=== PATIENT | female | born 1975 | race Caucasian/White ===

== ENCOUNTER 2023-06-25 15:37 | Outpatient (CLI) | payer OTHER, SELFPAY ==
--- NOTE | 2023-06-25 16:00 | CRLHL7_ITS ---
For Patients: As a result of the Cures Act, medical imaging exams and procedure reports are released immediately into your electronic medical record. You may view this report before your referring provider. If you have questions, please contact your health care provider. INDICATION: Unusual and frequent menses. TECHNIQUE: Transabdominal and transvaginal pelvic ultrasound. FINDINGS: The uterus measures 7.0 x 3.9 x 4.3 cm. Caesarean section scar anteriorly. The endometrial stripe measures 6 mm transvaginally. No myometrial mass. Indistinct endometrial/myometrial interface nonspecific. ? any history of adenomyosis. The right ovary measures 2.3 x 1.5 x 1.5 cm. The left ovary measures 2.4 x 1.5 x 1.7 cm. No free pelvic fluid. IMPRESSION: 1. No myometrial mass. Postsurgical change from prior resection. 2. Indistinct endometrial/myometrial interface, nonspecific. ? any history of adenomyosis. 3. Normal-sized ovaries without torsion or mass. Dictated by Chema Gandhi MD @ 06/26/2023 11:38:57 AM (Electronically Signed)
== END 2023-06-25 15:38 | disposition home or self-care (01) ==
LOC: US 15:39
PROVIDERS: Visit Provider Family Medicine
DX: N92.0 Excessive and frequent menstruation with regular cycle (principal)
CPT/HCPCS: 76830; 76856

== ENCOUNTER 2023-10-02 06:02 | Day surgery (SDC) | payer OTHER, SELFPAY ==
[2023-10-02] VITALS (22 sets, daily range): BP systolic 100–131; BP diastolic 57–84; PULSE 60–98; RESP 14–16; TEMP 36–36.9; O2SAT 97–100; BMI 24.0
[2023-10-02] MEDS: SODIUM CHLORIDE 0.9 % (FLUSH) 10 ML SYRINGE IVF (06:30)
[2023-10-02] MEDS: LACTATED RINGERS 1000 ML 1,000 ML 100 ML IV ×3 (06:30→11:17)
[2023-10-02 06:49] LABS: Ur HCG Qualitative* Negative (Negative)
[2023-10-02 06:55] LABS: Hemoglobin* 14.7 gm/dL (12.0-16.0)
--- NOTE | 2023-10-02 06:58 | W.PM.H&PU ---
History & Physical Update History & Physical Update H&P Updates: Rita reports her menstrual cycle has improved the last month. Otherwise, no interval changes. We reviewed and resigned consent form.
[2023-10-02] MEDS: CEFAZOLIN 2 GM INJ IVP (07:29)
[2023-10-02 07:34] LABS: Creatinine* 0.5 mg/dL (0.5-1.5); Est. Creatinine Clearance* 157.14; Estimated Glomerular Filt Rate 117 ml/min
--- NOTE | 2023-10-02 09:46 | W.PM.NB ---
Nerve Block Nerve Block Time Seen by Provider: 07:28 Date Seen: 10/02/23 Type of block requested by surgeon for post-operative analgesia: TAP Side: bilateral Time out performed: Yes Verification of patient name: Yes Verification of date of : Yes Site marking: site marked Name of person performing procedure: Saji Continuous monitoring Was continuous monitoring of O2 sat, B/P, director internal communications, recorded every 15 minutes?: Yes Procedure Checklist: sterile prep, needles and gloves Ultrasound guided. Images saved: Yes Medications given in 5ml increments after negative aspiration: Marcaine %: 0.25 mL: 30 Needle gauge: 20 and Exparel mL: 10 Patient tolerated procedure well: Yes Additional comments: Needle noted between internal oblique and transversus abdominus. Local spread visualized Block Charges Block Charge (with Pro Fee): TAP Bilateral Use of Ultrasound Machine for Block: Yes- US Guidance/pain block
--- NOTE | 2023-10-02 09:46 | W.ANESCHARGE ---
Anesthesia Charges Start Date/Time Anesthesia Start Date: 10/02/23 Anesthesia Start Time: 07:19 Stop Date/Time Anesthesia Stop Date: 10/02/23 Anesthesia Stop Time: 10:55
--- NOTE | 2023-10-02 10:59 | W.ANESCHARGE ---
Anesthesia Charges Start Date/Time Anesthesia Start Date: 10/02/23 Anesthesia Start Time: 07:19 Stop Date/Time Anesthesia Stop Date: 10/02/23 Anesthesia Stop Time: 10:55
--- NOTE | 2023-10-02 11:27 | SUR.PHASEI ---
1127: 450cc urine (blue/green) emptied from mcclelland
--- NOTE | 2023-10-02 12:20 | P.PCNOB_ITS ---
Procedure Type of Hysterectomy: Total Laparoscopic Pre-op/Post-op diagnoses: Pre-Op/Post-Op Diagnoses Operation Date: 10/02/23 07:15 <No data on this case meets the specified criteria> Procedure: Procedures Operation Date: 10/02/23 07:15 Actual Procedure Side Surgeon p M/S - Laparoscopic Hysterectomy, Bilateral Salpingectomy, Cystectomy, Lysis of Adhesions Bilateral Rosette Aguirre MD Latin American Studies Director: Lupe Espinal Estimated blood loss (mL): 25 Anesthesia type: General Complications: none Fluids: crystalloid Fluid amount (mL): 2,000 Urine output (mL): 800 Weight of Uterus: 4.55 oz Specimen: uterus, left tube and right tube Disposition: floor Narrative: Preoperative diagnosis: Rita is a 48-year-old 2 para 2 with abnormal uterine bleeding 2/2 possible adenomyosis Postoperative diagnosis: Same Drains: Burroughs to gravity Findings: On exam under anesthesia: The uterus was anteverted, approximately 6 week size, mobile without nodularity or masses palpable. Adnexa without mass or fullness palpable. On laparoscopy: Normal uterus, normal appearing bilateral fallopian tubes with the obvious is defect from previous tubal ligation. Normal-appearing right ovary. Left ovary with 1.5 cm physiologic ovarian cyst. Liver appeared normal. Omental adhesions to the anterior abdominal wall at the site of the previous Pfannenstiel. Procedure: Rita was taken to the operating room where general anesthetic was found to be adequate. She was placed in the dorsal lithotomy position and an exam under anesthesia was performed with findings stated above. She was then prepped and draped in a normal sterile manner. A Burroughs catheter was placed. A bivalve speculum was placed in the vaginal canal. A long Allis clamp was placed on the anterior lip of the cervix, in the uterus sounded to 9 cm. A medium size VCare uterine manipulator was then placed. The Allis clamp and speculum were removed from the cervix. Attention was then turned to performing the laparoscopic portion of the procedure. All incisions were infiltrated with 1% lidocaine with epi prior to incising the skin. A vertical, infraumbilical 0.5 cm incision was made. A 5 mm trocar was then placed under direct visualization. The abdomen was then insufflated with CO2 gas to a pressure of 15 mm of mercury. Three additional port sites were created. The 1st was in the patient's left lower quadrant, just superior medial to the left ASIS (this was an 11 mm port). The 2nd was a hand's breath superior to and slightly medial to the 1st. The 3rd was in the patient's right lower quadrant, just superior medial to the right ASIS. Each was infiltrated with small amount of lidocaine prior to incision. Of 5 mm incision was made at each site, making sure the large vessels were out of harm's way. A 5 mm Fios Kii port was inserted at each site, under direct visualization and without complication. The balloon on each of the 4 ports was inflated, holding each in place. Attention was then turned to performing the hysterectomy. Both ureters were visualized in the normal position bilaterally. Unfortunately, the ligasure was malfunctioning so I had to switch to the Thunderbeat. Lysis of adhesion was performed to take the omental adhesion off the anterior abdominal wall so I can have an unobstructed view of the pelvis. The left fallopian tube was grasped and removed with sequential pedicles using the dissecting Thunderbeat. The left side of the hysterectomy was performed using the Thunderbeat forceps. The 1st pedicles were starting with the broad ligament that was cauterized and and bisected. In sequence show pedicles were formed to divide the utero-ovarian ligament. Then sequential pedicles were made through the broad ligament. The posterior leaf of the broad ligament was then divided and sequential pedicles carried down to the level of the VCare cup. The anterior leaf of the broad ligament was then divided down to the level of the anterior aspect of the VCare cup and a bladder flap created. The uterine vessels were then skeletonized. The uterine vessels were then cauterized and divided. Then excess tissue was cleared over the top of the VCare cup using the dissecting forceps. The right salpingectomy and right side of the hysterectomy were then performed in a similar manner. The Ligasure Respect Network[employer] pen with the spatula attachment was then used to perform the colpotomy incising around the VCare cup. The uterus was removed and the fundus placed in the vaginal canal to maintain insufflation. The vaginal cuff was then reapproximated using 2-0 V lock suture in a running manner. All the pedicles and vaginal cuff were then closely visualized and hemostasis obtained with bipolar cautery using the ligasure dissecting forceps or the Valleylab pen with the spatula. The the uterus was removed from the vaginal canal and sent to pathology. The Burroughs catheter was briefly removed. A diagnostic cystoscopy was performed using normal saline as the insufflation medium. The dome of the bladder was noted to be without injury and no evidence of any sutures from the vaginal cuff causing injury. Normal urine flow was noted through both ureteral orifices. Fluorescein IV was used to visualize the urine more easily. The Burroughs catheter was then replaced. Attention was then returned to the abdomen where hemostasis was verified. Hilda was applied to the vaginal cuff. The CO2 pressure decreased to 8mmHG and hemostasis verified. The fascia in the LLQ incision was approximated with 0- Vicryl suture using the Sreedhar Torre fascial closure device. This was closed under direct visualization with the laparoscope. All trocars were removed under direct visualization. CO2 gas was allowed to escape the infraumbilical port prior to its removal. All skin incisions were re-approximated using 3-0 Monocryl in a running subcuticular manner, Exophin skin adhesive gel and adhesive bandages placed. The patient tolerated this procedure well. Sponge, lap and instrument counts were correct x2 at the end of the procedure and the patient was taken to the recovery area in stable condition. The patient received 2 gm IV ancef prior to the start of the procedure.
[2023-10-02] MEDS: ACETAMINOPHEN 500 MG TABLET 1000 MG PO ×2 (13:56→20:04)
[2023-10-02] MEDS: DOCUSATE SODIUM 100 MG CAPSULE PO (14:25)
--- NOTE | 2023-10-02 14:40 | PC.NURSE ---
Patient up to ambulate. Was able to sit herself up on the side of the bed. Did not report any dizziness or lightheadedness. Was able to tolerate ambulating from the bed to the bathroom, and back to bed with no assist. Burroughs catheter removed per order. Patient sat in the bathroom for awhile because of the feeling of needing to have a bowel movement. Requested Docusate Sodium. Patient felt minimal pain. K-Pad initiated per patient. Heating pads work well for her pain.
[2023-10-02] MEDS: IBUPROFEN 600 MG TABLET PO (16:25)
[2023-10-02] MEDS: BENZOCAINE/MENTHOL 1 EACH LOZENGE MUCOUS MEM (18:29)
[2023-10-02] MEDS: SIMETHICONE 80 MG TAB.CHEW 160 MG PO (22:35)
[2023-10-02] MEDS: OXYCODONE 5 MG TABLET PO (22:35)
[2023-10-03 03:30] VITALS: BP 125/78; PULSE 81; RESP 20; TEMP 37.1; O2SAT 98
[2023-10-03] MEDS: IBUPROFEN 600 MG TABLET PO ×3 (03:35→15:35)
[2023-10-03] MEDS: SIMETHICONE 80 MG TAB.CHEW 160 MG PO ×2 (04:02→08:02)
[2023-10-03] MEDS: OXYCODONE 5 MG TABLET PO ×4 (04:03→16:04)
[2023-10-03 05:31] LABS: Basophils Absolute Auto 0.02 K/uL (0.00-0.30); Basophils Percent Auto 0.3 % (0.0-3.0); Eosinophils Absolute Auto 0.09 K/uL (0.00-0.50); Eosinophils Percent Auto 1.3 % (0.0-7.0); Hematocrit 34.5 % (33.0-51.0); Hemoglobin* 11.8 gm/dL (12.0-16.0); Immature Granulocytes Abs Auto 0.01 K/uL (0.00-0.30); Immature Granulocytes Pct Auto 0.1 %; Lymphocytes Percent Auto 14.7 % (20-44); Mean Corpuscular HGB Conc 34 gm/dL (32-36); Mean Corpuscular Hemoglobin 31 pg (26-34); Mean Corpuscular Volume 91 fL (80-100); Monocytes Percent Auto 8.5 % (0.0-11.0); Neutrophils Percent Auto 75.1 % (42.0-72.0); Platelet Count* 154 K/uL (140-440); RDW Coefficient of Variation % 12.5 % (11.5-15.5); Red Blood Count 3.81 m/uL (4.00-5.20); White Blood Count* 6.82 K/uL (4.50-11.00)
[2023-10-03 05:40] LABS: Slide Review Reflex No
[2023-10-03 05:42] LABS: Creatinine* 0.5 mg/dL (0.5-1.5); Est. Creatinine Clearance* 157.14; Estimated Glomerular Filt Rate 117 ml/min
[2023-10-03] MEDS: ACETAMINOPHEN 500 MG TABLET 1000 MG PO ×2 (06:37→12:32)
[2023-10-03] MEDS: DOCUSATE SODIUM 100 MG CAPSULE PO (08:02)
[2023-10-03 08:11] VITALS: BP 125/78; PULSE 82; RESP 18; TEMP 36.9; O2SAT 100
[2023-10-03 15:29] VITALS: BP 108/63; PULSE 72; RESP 18; TEMP 36.7; O2SAT 98
--- NOTE | 2023-10-03 15:37 | P.DS_ITS ---
DS: Providers Provider Time Seen by Provider: 08:00 Date Seen: 10/03/23 Primary care physician: Oc Plascencia MD Attending Physician on discharge: Varghese Espinal MD Date of Discharge: 10/03/23 DS: Diagnosis Discharge Diagnosis (1) S/P laparoscopic hysterectomy: Status: Acute RADIOGRAPHER-Discharge Summary Hospital Course Hospital Course Narrative: Patient is a 48 year old admitted on 10/02/2023 for elective surgery. Indication for surgery: Abnormal uterine bleeding. She had an uncomplicated surgery. Postoperative course has been uneventful. Vitals have been stable. She has remained afebrile. Today, on postoperative day 1, she reports the pain is well controlled. She has been able to ambulate Without difficulty. She is tolerating regular diet. She is passing flatus. Mcclelland catheter has been removed, and she is voiding without difficulty. Time Spent with Patient Time attestation: Total time spent providing and/or coordinating discharge services: Time spent: Less than 30 minutes RADIOGRAPHER - Exam Physical Exam: Vital signs: Temp Pulse Resp BP Pulse Ox O2 Del Method 98.0 F 72 18 108/63 98 Room Air 10/03/23 15:29 10/03/23 15:29 10/03/23 15:29 10/03/23 15:29 10/03/23 15:29 10/03/23 15:29 Narrative: VITAL SIGNS: As noted above. GENERAL APPEARANCE: Alert, cooperative female in no acute distress. MOOD & AFFECT: Normal. HEART: Regular rate and rhythm without murmurs. LUNGS: Lungs are clear to auscultation bilaterally. No crackles, wheezes, or rhonchi. ABDOMEN: Positive bowel sounds, soft, appropriately tender. Follow-up incisions healing well, no surrounding erythema, induration or abnormal discharge. : Mild spotting. EXTREMITIES: Nonedematous. Well perfused. Nontender. NEURO: Intact. RADIOGRAPHER - DS: Data Data Completed and Pending Labs on day of discharge: Labs from last 24 hours 10/03/23 05:18 WBC 6.82 RBC 3.81 L Hgb 11.8 L Hct 34.5 MCV 91 MCH 31 MCHC 34 RDW Coeff of Sahra 12.5 Plt Count 154 Neut % (Auto) 75.1 H Lymph % (Auto) 14.7 L [place] % (Auto) 8.5 Eos % (Auto) 1.3 Baso % (Auto) 0.3 Neut # (Auto) 5.10 Lymph # (Auto) 1.00 [place] # (Auto) 0.60 Eos # (Auto) 0.09 Baso # (Auto) 0.02 Abs Immat Gran (auto) 0.01 Imm/Tot Granulo (auto) 0.1 Creatinine 0.5 Estimated Creat Clear 157.14 Estimated GFR 117 Procedures Procedures: Procedures Operation Date: 10/02/23 07:15 Actual Procedure Side Surgeon p M/S - Laparoscopic Hysterectomy, Bilateral Salpingectomy, Cystectomy, Lysis of Adhesions Bilateral Rosette Drew Aguirre MD Complications: none Discharge Plan Discharge Disposition: Home, Self-Care Discharging Surgeon: Lupe Espinal Follow-Up Appointment: 2 week postoperative visit Prescriptions: Continued Cosentyx Pen (2 Pens) 150 mg/mL pen injector 150 mg subcut Q4W Activity Level: Activity as Tolerated Discharge Diet: Regular Patient Instructions: Surgical Site Infections (DC) Additional Instructions: LAPAROSCOPY POSTOPERATIVE INSTRUCTIONS ACTIVITY * No heavy lifting/pushing/pulling for 4-6 weeks. Do not lift anything more than about 15 lbs (such as laundry, groceries, children, pets), vacuum, push heavy doors or grocery carts, etc. You may climb stairs as tolerated. * Do not put anything in the vagina for 6-8 weeks after surgery unless otherwise instructed by your doctor (including tampons, douching, sexual intercourse, etc). * No driving for about 2 weeks after surgery, while you are taking narcotic pain medication, or until you feel that you are ready. Practice checking your blind spot and stepping hard on the brake. * Avoid sitting or lying in bed for more than 2 hours at a time while you are awake to reduce your risk of blood clots. * You may return to work when directed by your physician. Please contact your doctor if you need any return to work letters or medical leave paperwork to be completed. WOUND CARE * You will have 4 small incisions on your abdomen. There will be dissolvable stitches under your skin that do not need to be removed. * Shower daily after surgery. Clean your incision with mild antibacterial soap and water. Pat your incision dry with a clean towel. No tub baths until wound is completely healed. * Wash your hands frequently, especially before touching your incision, changing any dressings, after using the restroom, and before eating. PAIN MANAGEMENT * Take your oral pain medication as needed. You should be taking Ibuprofen 600mg every 6 hours with 650 mg of Tylenol every 6 hours. You can take these together every six hours or alternate them every 3 hours. You should then take the oxycodone as needed if you have breakthrough pain on top of the Tylenol and Ibuprofen. * Some pain medications can cause constipation so you should take a stool softener (i.e. colace/senna) while you are on these medications. * You may also take milk of magnesia or Miralax for constipation. WHAT TO EXPECT AT HOME * Recovery from surgery is generally 2-4 weeks, but sometimes longer for more strenuous activity. It is normal to be very tired during this time. * It is normal to have some drainage or a small amount of vaginal bleeding after surgery which may last up to 6 weeks. * You may go home with a mcclelland catheter in your bladder. If so, you will need to follow up for a nurse visit in 7-10 days for removal. * You will most likely experience gas pain, abdominal swelling, or shoulder pain for 24-72 hours after surgery. This is from the carbon dioxide gas put into your abdomen to better visualize your organs. A warm shower, heating pad, and/or walking may help. WHEN TO CALL YOUR DOCTOR : * Fever (>100.4?F or 38.0?C) or chills. * Incision problems such as redness, warmth, swelling, or foul-smelling drainage. * Severe nausea or persistent vomiting. * Bright red vaginal bleeding (soaking >1 pad/hour) or foul-smelling vaginal drainage. * Severe pain not relieved with pain medication. * Pain and swelling in your legs, especially if it is only on one side and not t he other. * Pain with urination, cloudy urine, or foul-smelling urine. * Or if you have any other problems or questions. CALL 911 OR GO TO THE EMERGENCY ROOM IF YOU HAVE: Any shortness of breath, diffi culty breathing, or chest pain. Forms: Work/School Release Follow-up: Oc Plascencia MD [Primary Care Provider] - Discharge Orders: Discharge Order (Routine); Ordered 10/03/23 Ordered By: Lupe Espinal
== END 2023-10-03 16:04 | disposition home or self-care (01) ==
LOC: OR 06:02 → OB 06:06
PROVIDERS: PCP Family Medicine; Visit Provider Obstetrics & Gynecology
PROC: 0UT94ZZ Resection of Uterus, Percutaneous Endoscopic Approach (ICD-10-PCS; CPT 58552; principal; 2023-10-02 07:15)
DX: N93.8 Other specified abnormal uterine and vaginal bleeding (principal); N83.292 Other ovarian cyst, left side; N84.0 Polyp of corpus uteri; D25.9 Leiomyoma of uterus, unspecified; G89.18 Other acute postprocedural pain
CPT/HCPCS: 58552; 00840; 36415; 64488; 76942; 81025; 82565; 85018; 85025; 86850; 86900; 86901; 88307; A9270; C9290; J0665; J0690; J1100; J1170; J1885; J2250; J2405; J2704; J2710; J3010; J3475; J7120

== ENCOUNTER 2024-06-13 14:22 | Outpatient (CLI) | payer OTHER, SELFPAY ==
--- NOTE | 2024-06-13 14:40 | CRLHL7_ITS ---
For Patients: As a result of the Century Cures Act, medical imaging exams and procedure reports are released immediately into your electronic medical record. You may view this report before your referring provider. If you have questions, please contact your health care provider. BILATERAL DIGITAL SCREENING MAMMOGRAM WITH COMPUTER-AIDED DETECTION AND TOMOSYNTHESIS CLINICAL HISTORY: Routine screening exam. COMPARISON: None. TECHNIQUE: Digital mammogram in CC and MLO projections including computer-aided detection (CAD). Tomosynthesis was used in this interpretation. BREAST COMPOSITION: The breasts are heterogeneously dense, which may obscure small masses. FINDINGS: RIGHT Breast: No suspicious findings LEFT Breast: Nodular density lateral breast 6 cm from the nipple. Probable cyst. IMPRESSION: LEFT breast asymmetry/mass. RECOMMENDATIONS: LEFT breast ultrasound recommended. BI-RADS Category 0: Incomplete: Need Additional Imaging Evaluation and/or Prior Mammograms for Comparison The [facility] will contact the patient for follow-up. A lay language report of this examination will be provided to the patient. Dictated by Keagan De Los Santos MD @ 06/16/2024 10:51:09 AM j/Dictated by: Keagan De Los Santos MD @ 06/16/2024 10:51:00 AM (Electronically Signed)
== END 2024-06-13 14:23 | disposition home or self-care (01) ==
LOC: MAMMO 14:23
PROVIDERS: PCP Family Medicine; Visit Provider Family Medicine
DX: Z12.31 Encounter for screening mammogram for malignant neoplasm of breast (principal); R92.333 Mammographic heterogeneous density, bilateral breasts
CPT/HCPCS: 77063; 77067

== ENCOUNTER 2024-07-01 08:04 | Outpatient (CLI) | payer OTHER, SELFPAY ==
--- NOTE | 2024-07-01 08:15 | CRLHL7_ITS ---
For Patients: As a result of the Cures Act, medical imaging exams and procedure reports are released immediately into your electronic medical record. You may view this report before your referring provider. If you have questions, please contact your health care provider. LEFT BREAST ULTRASOUND CLINICAL HISTORY: LEFT breast mass/asymmetry. COMPARISON: 06/13/2024. TECHNIQUE: Real-time ultrasound imaging of LEFT breast with imaging documentation. FINDINGS: Targeted LEFT breast ultrasound performed at 2 o`clock 6 cm from the nipple. In this location, there is a circumscribed anechoic cyst measuring 3.3 x 1.2 x 3.0 cm. No solid component. IMPRESSION: Simple cysts LEFT breast 2 o`clock 6 cm from the nipple measuring 3.3 cm. RECOMMENDATIONS: Annual BILATERAL screening mammography. Results and recommendations were discussed with the patient at the time of the exam. BI-RADS Category 2: Benign A lay language report of this examination will be provided to the patient. Dictated by Keagan De Los Santos MD @ 07/01/2024 8:50:22 AM jj/Dictated by: Keagan De Los Santos MD @ 07/01/2024 8:50:00 AM (Electronically Signed)
== END 2024-07-01 08:05 | disposition home or self-care (01) ==
LOC: US 08:05
PROVIDERS: PCP Family Medicine; Visit Provider Family Medicine
DX: N63.20 Unspecified lump in the left breast, unspecified quadrant (principal); N60.02 Solitary cyst of left breast; R93.89 Abnormal findings on diagnostic imaging of other specified body structures
CPT/HCPCS: 76642

== ENCOUNTER 2024-07-18 10:54 | Outpatient (CLI) | payer OTHER, SELFPAY ==
--- NOTE | 2024-07-18 11:00 | CRLHL7_ITS ---
For Patients: As a result of the Century Cures Act, medical imaging exams and procedure reports are released immediately into your electronic medical record. You may view this report before your referring provider. If you have questions, please contact your health care provider. INDICATION: Otitis media. TECHNIQUE: Noncontrast CT images of the temporal bones. COMPARISON: None. FINDINGS: Right side: The external auditory canal is widely patent. Mild tympanic membrane thickening. Mild opacification of the epitympanum and mesotympanum, including Prussak`s space. No ossicular or scutal erosion. No evidence for otosclerosis. Normal morphology of the inner ear structures. No semicircular canal dehiscence. Moderate opacification of the mastoid air cells. Left side: The external auditory canal is widely patent. The tympanic membrane is faintly visualized. The middle ear cavity is clear. The ossicles and scutum are intact. No evidence for otosclerosis. Normal morphology of the inner ear structures. No semicircular canal dehiscence. The mastoid air cells are clear. IMPRESSION: 1. Moderate opacification of the right mastoid air cells and mild opacification of the right middle ear cavity. Findings may be secondary to chronic airspace disease, though acute otomastoiditis could be considered in an appropriate clinical setting. No ossicular or scutal erosion. 2. Unremarkable CT of the left temporal bones. Please note that all CT scans at this facility use dose modulation, iterative reconstruction, and/or weight-based dosing when appropriate to reduce radiation dose to as low as reasonably achievable. Dictated by Papo Reyes MD @ 07/20/2024 9:37:57 PM (Electronically Signed)
--- NOTE | 2024-07-18 11:00 | CRLHL7_ITS ---
For Patients: As a result of the Century Cures Act, medical imaging exams and procedure reports are released immediately into your electronic medical record. You may view this report before your referring provider. If you have questions, please contact your health care provider. INDICATION: Chronic sinusitis. TECHNIQUE: Noncontrast CT images of the paranasal sinuses. COMPARISON: None. FINDINGS: No air-fluid levels to suggest acute sinusitis. Mbdy-ax-[id number] mucosal thickening in the maxillary sinuses. The ethmoid infundibula are widely patent. Mild-moderate mucosal thickening in the frontal recesses. The frontal sinuses are otherwise clear. Tolt-bm-[id number] opacification of the ethmoid air cells. Mild mucosal thickening in the sphenoid sinuses. The right sphenoethmoid recess is opacified. The left sphenoethmoidal recess is clear. There is 4 mm leftward nasal septal deviation. No nasal cavity masses. Moderate opacification of right mastoid air cells. IMPRESSION: 1. Tmbj-or-vaupiath paranasal sinus mucosal disease. No air-fluid levels to suggest acute sinusitis. 2. Leftward nasal septal deviation. 3. Moderate opacification of right mastoid air cells. Please note that all CT scans at this facility use dose modulation, iterative reconstruction, and/or weight-based dosing when appropriate to reduce radiation dose to as low as reasonably achievable. Dictated by Papo Reyes MD @ 07/20/2024 9:27:39 PM (Electronically Signed)
== END 2024-07-18 10:55 | disposition home or self-care (01) ==
LOC: CT 10:55
PROVIDERS: PCP Family Medicine; Visit Provider Otolaryngology
DX: J32.9 Chronic sinusitis, unspecified (principal); J34.2 Deviated nasal septum; H66.93 Otitis media, unspecified, bilateral
CPT/HCPCS: 70480; 70486

== ENCOUNTER 2024-08-22 09:06 | Day surgery (SDC) | payer OTHER, SELFPAY ==
[2024-08-22] VITALS (12 sets, daily range): BP systolic 122–142; BP diastolic 70–99; PULSE 60–83; RESP 16–18; TEMP 36.2–36.6; O2SAT 98–100; BMI 24.8
[2024-08-22] MEDS: SODIUM CHLORIDE 0.9 % (FLUSH) 10 ML SYRINGE IVF (10:07)
[2024-08-22] MEDS: OXYMETAZOLINE 0.05% NASAL SPRAY 2 SPRAY NOSTRIL-B (10:30)
[2024-08-22] MEDS: LACTATED RINGERS 1000 ML 1,000 ML 100 ML IV (10:45)
[2024-08-22] MEDS: COCAINE HCL 4 % 4 ML SOLUTION NOSTRIL-B (11:05)
[2024-08-22] MEDS: CIPROFLOX/DEXAMETH OTIC (nc) 4 DROP EAR-RIGHT (11:05)
[2024-08-22] MEDS: AYR SALINE NASAL GEL 1 APPLIC NOSTRIL-B (11:05)
[2024-08-22] MEDS: MUPIROCIN 1 GM PACKET 1 APPLIC TOPICAL (11:05)
[2024-08-22] MEDS: BUPIVACAINE 0.5%/EPINEPHRINE 0.9 MG (30.9 ML) INJECTION (11:15)
--- NOTE | 2024-08-22 11:31 | W.ANESCHARGE ---
Anesthesia Charges Start Date/Time Anesthesia Start Date: 08/22/24 Anesthesia Start Time: 10:49 Stop Date/Time Anesthesia Stop Date: 08/22/24 Anesthesia Stop Time: 11:34
--- NOTE | 2024-08-22 11:39 | W.ANESCHARGE ---
Anesthesia Charges Start Date/Time Anesthesia Start Date: 08/22/24 Anesthesia Start Time: 10:49 Stop Date/Time Anesthesia Stop Date: 08/22/24 Anesthesia Stop Time: 11:34
--- NOTE | 2024-08-22 11:42 | P.ENTPROC_ITS ---
Procedure Note Date of procedure: 08/22/24 Procedure: Preoperative diagnosis right tympanic membrane retraction, right serous otitis media, deviated septum, nasal obstruction, right inferior turbinate hypertrophy Postoperative diagnosis same Procedure nasal septoplasty, right myringotomy with tube placement, submucous partial resection right inferior turbinate Under general trach anesthesia patient was prepped and draped usual fashion. The right ear canal was inspected an inferior radial myringotomy incision was made. Serous fluid was aspirated a Duravent tube placed followed by Ciprodex drops The nose was decongested injected. A right hemitransfixion incision was made l eft anterior and posterior tunnels were created. A vertical incision was made through the cartilage and a right posterior tunnel created. The posterior deflected portions of septal bone resected and a single large piece trimmed returned to intraseptal space. Additionally there was redundant cartilage anteriorly I removed the 2 mm inferior strip that allowed the septum to return to midline. A stab incision was made in the anterior of the right inferior turbinate a tunnel created with a Norman dissector. The tonie bone was outfractured a very conservative anterior submucous resection was performed. The Coblation was used for hemostasis The hemitransfixion was closed with 2 4-0 chromic sutures and silastic stents secured with 3-0 nylon. A Merocel pack was placed in each side of the nose. The patient procedure well was taken recovery in satisfactory condition. Blood loss less than 25 mL. Surgeon: Hair Gipson MD
[2024-08-22] MEDS: hydrOXYzine pamoate 25 MG CAPSULE PO (12:50)
[2024-08-22] MEDS: IBUPROFEN 200 MG TABLET PO (12:50)
== END 2024-08-22 13:43 | disposition home or self-care (01) ==
LOC: OR 09:08
PROVIDERS: PCP Family Medicine; Visit Provider Otolaryngology
PROC: (CPT 69420; principal; 2024-08-22 10:30)
PROC: (CPT 30520; 2024-08-22 10:30)
DX: J34.2 Deviated nasal septum (principal); J34.3 Hypertrophy of nasal turbinates; J34.89 Other specified disorders of nose and nasal sinuses; H73.891 Other specified disorders of tympanic membrane, right ear; H65.21 Chronic serous otitis media, right ear
CPT/HCPCS: 30520; 30140; 69436; 00160; A9270; J1100; J2250; J2405; J2704; J3010; J7120

== ENCOUNTER 2025-06-19 08:55 | Outpatient (CLI) | payer OTHER, SELFPAY ==
--- NOTE | 2025-06-19 09:15 | CRLHL7_ITS ---
For Patients: As a result of the Cures Act, medical imaging exams and procedure reports are released immediately into your electronic medical record. You may view this report before your referring provider. If you have questions, please contact your health care provider. INDICATION: BILATERAL SCREENING MAMMOGRAM, ASYMPTOMATIC 50 Y/O FEMALE COMPARISON: 06/13/2024 TECHNIQUE: Digital mammogram in CC and MLO projections including computer-aided detection (CAD) and tomosynthesis. BREAST COMPOSITION: The breasts are heterogeneously dense, which may obscure small masses. FINDINGS: No suspicious findings. ASSESSMENT: BI-RADS 2 Benign RECOMMENDATION: Annual screening mammogram. A lay language report of this examination will be provided to the patient. Dictated by: Keagan De Los Santos MD @ 06/19/2025 09:41:34 (Electronically Signed)
== END 2025-06-19 08:56 | disposition home or self-care (01) ==
LOC: MAMMO 08:56
PROVIDERS: PCP Family Medicine; Visit Provider Family Medicine
DX: Z12.31 Encounter for screening mammogram for malignant neoplasm of breast (principal); R92.333 Mammographic heterogeneous density, bilateral breasts
CPT/HCPCS: 77063; 77067

== ENCOUNTER 2025-08-25 11:16 | Outpatient (CLI) | payer OTHER, SELFPAY | END 2025-08-25 11:17 | disposition home or self-care (01) | LOC: LKVREF 11:17 | PROVIDERS: PCP Family Medicine; Visit Provider Physician Assistant | DX: H65.91 Unspecified nonsuppurative otitis media, right ear (principal) | CPT/HCPCS: 87070 ==

== ENCOUNTER 2025-08-28 13:27 | Outpatient (CLI) | payer OTHER, SELFPAY ==
--- NOTE | 2025-08-28 13:45 | CRLHL7_ITS ---
For Patients: As a result of the Century Cures Act, medical imaging exams and procedure reports are released immediately into your electronic medical record. You may view this report before your referring provider. If you have questions, please contact your health care provider. Indication: Otorrhea, right ear. Technique: Multiplanar multisequence MR imaging of the brain and internal auditory canals prior to and following intravenous administration of 15 mL Dotarem. Comparison: CT sinus 07/18/2024. Findings: The ventricles and sulci are within normal limits for patient age. No mass effect or midline shift. Few small FLAIR hyperintensities in the supratentorial white matter, nonspecific. No pathologic intracranial enhancement no intracranial hemorrhage or pathologic extra-axial fluid collection. No diffusion restriction to suggest acute infarction. No mass or pathologic enhancement within the internal auditory canals or cerebellopontine angles. No concerning signal abnormalities in the inner ear structures. No vascular loop in the internal auditory canals. The major arterial flow voids of the skull base are preserved. Globes are symmetric. Mild to moderate paranasal sinus mucosal thickening. Moderately large right mastoid effusion. Trace left mastoid fluid. Impression: 1. No acute intracranial abnormality. 2. No mass or pathologic enhancement within the internal auditory canals or cerebellopontine angles. 3. Few small FLAIR hyperintensities in the supratentorial white matter are nonspecific, though most typical for sequelae of migraine headaches or minimal chronic microvascular ischemic changes. 4. Moderately large right mastoid effusion. Dictated by Papo Reyes MD @ 08/29/2025 8:11:34 AM (Electronically Signed)
== END 2025-08-28 13:28 | disposition home or self-care (01) ==
LOC: MRI 13:28
PROVIDERS: PCP Family Medicine; Visit Provider Physician Assistant
DX: H92.11 Otorrhea, right ear (principal); H53.9 Unspecified visual disturbance; M54.2 Cervicalgia
CPT/HCPCS: 70553; A9575